=== PATIENT | male | born 1975 | race Caucasian/White ===

== ENCOUNTER 2021-11-26 08:38 | Emergency (ER) | payer BC, SELFPAY ==
[2021-11-26 08:45] VITALS: BP 174/103; PULSE 103; RESP 18; TEMP 36.3; O2SAT 97
--- NOTE | 2021-11-26 09:26 | ECG_ITS ---
Measurements Intervals [place] Rate: 94 P: 13 CO: 146 QRS: 55 QRSD: 104 T: 51 QT: 361 QTc: 451 Interpretive Statements SINUS RHYTHM INCOMPLETE RIGHT BUNDLE BRANCH BLOCK DELAYED PRECORDIAL R/S TRANSITION BASELINE ARTIFACT- I, III BORDERLINE ECG Electronically Signed On 11-26-2021 10:21:19 CDT by Agustín Velázquez D.O.
--- NOTE | 2021-11-26 09:28 | ED.GENADULT ---
HPI - General Adult General Chief complaint: Anxiety Stated complaint: anxiety, ETOH withdraw Time Seen by Provider: 11/26/21 09:14 History of Present Illness HPI narrative: 46-year-old male presents to the emergency room for evaluation of anxiety and alcohol withdrawal. Patient states that he has been drinking approximately half a bottle of vodka daily for approximately 3 years, and is recently decided to discontinue his alcohol use. Patient states that he routinely has difficulty sleeping, averages about 2 to 3 hours a night. Patient notes multiple life stressors recently, including changes on his job and diet upcoming [place]. Related Data Allergies Allergy/AdvReac Type Severity Reaction Status Date / Time No Known Allergies Allergy Verified 11/26/21 09:51 Review of Systems Review of Systems: CONSTITUTIONAL: Denies fever, chills, or sweats. EYES: Denies visual changes, redness, or discharge. ENT: Denies rhinorrhea, congestion, sore throat, or otalgia. CARDIOVASCULAR: Denies chest pain, palpitations, or edema. RESPIRATORY: Denies cough or dyspnea. GASTROINTESTINAL: Denies abdominal pain, nausea, vomiting, or diarrhea. GENITOURINARY: Denies dysuria or hematuria. SKIN: Denies rash or itching. MUSCULOSKELETAL: Denies back pain, joint pain, or myalgia. NEUROLOGIC: Denies headache, numbness, dizziness, or weakness. PSYCHIATRIC: Reports anxiety, insomnia. PMFSH Past Medical History Medical History (Updated 11/26/21 @ 14:54 by Indra Rebolledo, AIDS NURSE) Alcohol withdrawal Exam Narrative: GENERAL: Well-appearing, well-nourished, and in no acute distress. HEAD: Normocephalic, atraumatic. EYES: PERRLA and EOMI. ENT: Nares clear, no rhinorrhea or epistaxis. Mucous membranes moist. NECK: Supple. No adenopathy or masses. No carotid bruits or JVD CHEST: Clear to auscultation. No respiratory distress. No wheezes rales or rhonchi HEART: Regular rate and rhythm. No murmur heard. Normal peripheral pulses. ABDOMEN: Soft, nontender, nondistended, normal active bowel sounds. EXTREMITIES: Normal range of motion. No edema. SKIN: Warm, dry, no rash. NEURO: No focal deficits. Alert and oriented x3. PSYCH: Normal mood and affect. Course Vital Signs Vital signs: Vital Signs Temperature 36.3 C L 11/26/21 08:45 Pulse Rate 103 H 11/26/21 08:45 Respiratory Rate 18 11/26/21 08:45 Blood Pressure 174/103 H 11/26/21 08:45 Pulse Oximetry 97 11/26/21 08:45 Temperature 36.3 C L 11/26/21 08:45 Pulse Rate 94 11/26/21 12:30 Respiratory Rate 17 11/26/21 12:30 Blood Pressure 150/88 H 11/26/21 12:30 Pulse Oximetry 99 11/26/21 12:30 Medical Decision Making MDM Narrative Medical decision making narrative: 46-year-old male presented the emergency room for evaluation of anxiety and alcohol withdrawal. Initial ethanol level was over 200, repeat value showed his ethanol was less than 100 at 2:00. CBC was unremarkable. CMP shows a elevation in his AST and ALT, likely due to his alcohol use. Patient was given Librium and instructions on alcohol withdrawal symptoms. Vital Signs Vital Signs: Vital Signs Temperature 36.3 C L 11/26/21 08:45 Pulse Rate 103 H 11/26/21 08:45 Respiratory Rate 18 11/26/21 08:45 Blood Pressure 174/103 H 11/26/21 08:45 Pulse Oximetry 97 11/26/21 08:45 Temperature 36.3 C L 11/26/21 08:45 Pulse Rate 94 11/26/21 12:30 Respiratory Rate 17 11/26/21 12:30 Blood Pressure 150/88 H 11/26/21 12:30 Pulse Oximetry 99 11/26/21 12:30 Lab Data Result diagrams: 11/26/21 09:36 11/26/21 09:36 Labs: Lab Results 11/26/21 11/26/21 11/26/21 Range/Units 09:36 09:36 09:36 WBC 7.8 (4.5-10.0) K/mm3 RBC 5.65 (4.6-6.20) M/mm3 Hgb 17.5 (14.0-18.0) g/dL Hct 49.8 (42.0-52.0) % MCV 88.1 (80-100) fl MCH 31.0 (26-34) pg MCHC 35.1 (32-36) g/dl RDW 12.5 (11.5-14.5) % Plt Count 264 (150-375) k/mm
[2021-11-26 09:53] LABS: Basophils Absolute Auto 0.1 K/mm3 (0.0-0.1); Basophils Percent Auto 1.3 % (0.2-1.2); Eosinophils Absolute Auto 0.2 K/mm3 (0-0.3); Eosinophils Percent Auto 2.2 % (0-4.4); Hematocrit 49.8 % (42.0-52.0); Hemoglobin 17.5 g/dL (14.0-18.0); Immature Granulocyte Absolute 0.02 K/mm3 (0.00-0.031); Immature Granulocyte Percent A 0.3 % (0-0.5); Lymphocytes Absolute Auto 1.78 K/mm3 (0.9-3.2); Lymphocytes Percent Auto 22.9 % (18.3-44.2); Mean Corpuscular HGB Conc 35.1 g/dl (32-36); Mean Corpuscular Volume 88.1 fl (80-100); Mean Platelet Volume 9.7 fl (7.4-10.4); Monocytes Absolute Auto 0.6 K/mm3 (0.1-0.6); Monocytes Percent Auto 8.2 % (2.6-8.5); Neutrophils Absolute Auto 5.1 K/mm3 (1.3-6.7); Neutrophils Percent Auto 65.1 % (45.5-73.1); Platelet Count Result 264 k/mm3 (150-375); Red Blood Count 5.65 M/mm3 (4.6-6.20); Red Cell Distribution Width 12.5 % (11.5-14.5); White Blood Count 7.8 K/mm3 (4.5-10.0)
[2021-11-26 10:03] LABS: Ethanol 215 mg/dL (<10)
[2021-11-26] MEDS: SODIUM CHLORIDE 0.9% IV 1,000 ML 999 ML IV CONT (10:03)
[2021-11-26 10:05] LABS: Alanine Aminotransferase 122 U/L (6-50); Albumin Level 5.4 g/dL (3.5-5.1); Alkaline Phosphatase 88 U/L (38-126); Anion Gap 14 mmol/L (8-16); Aspartate Amino Transferase 104 U/L (17-59); Bilirubin,Total 1.1 mg/dL (0.2-1.3); Blood Urea Nitrogen 13 mg/dL (9-20); Calcium 9.7 mg/dL (8.4-10.2); Carbon Dioxide 25 mmol/L (22-30); Chloride 102 mmol/L (98-107); Cholesterol 237 mg/dL (0-200); Estimated CRCL calculation 90 ml/min; Estimated Glomerular Filt Rate > 60; Glucose 112 mg/dL (65-110); HDL Direct 108 mg/dL; Potassium 3.9 mmol/L (3.4-5.0); Sodium 141 mmol/L (137-145); Triglycerides 101 mg/dL (<150)
[2021-11-26 10:13] LABS: Appearance Urine Clear (Clear); Bilirubin Urine Negative (Negative); Blood Urine Negative (Negative); Color Urine Yellow (Yellow); Glucose Urine UA Negative (Negative); Ketones Urine Negative (Negative); Leukocyte Esterase Ur Negative LEU/UL (Negative); Nitrate Urine Negative (Negative); Protein Urine Negative (Negative); Specific Grav Ur <= 1.005 (1.001-1.035); Urobilinogen Urine 0.2 mg/dL (<2.0)
[2021-11-26 10:16] LABS: LDL Cholesterol Direct 92 mg/dL
[2021-11-26 10:18] LABS: Bacteria Urine Trace /hpf; Mucus Urine Rare /lpf; RBC Urine 0-2 /hpf (0-2); Troponin I < 0.012 ng/mL (0.000-0.034); WBC Urine 0-3 /hpf
[2021-11-26 10:19] LABS: Add Urine Microscopic? NO
[2021-11-26] MEDS: chlordiazePOXIDE (*CRX) 10 MG CAPSULE PO (11:49)
[2021-11-26 12:17] LABS: Ethanol 147 mg/dL (<10)
[2021-11-26 12:30] VITALS: BP 150/88; PULSE 94; RESP 17; O2SAT 99
--- NOTE | 2021-11-26 14:27 | PC.NURSE ---
lunch tray ordered.
[2021-11-26 15:15] LABS: Ethanol 100 mg/dL (<10)
[2021-11-26 15:18] VITALS: BP 144/84; PULSE 89; RESP 16; O2SAT 99
== END 2021-11-26 15:49 | disposition home or self-care (01) ==
PROVIDERS: Emergency Provider Nurse Practitioner Family
DX: F41.9 Anxiety disorder, unspecified (principal); F10.230 Alcohol dependence with withdrawal, uncomplicated
CPT/HCPCS: 36415; 80053; 80061; 80307; 81003; 84484; 85025; 93005; 96360; 99284; A9270; J7030